=== PATIENT | male | born 1955 | race Caucasian/White ===

== ENCOUNTER 2019-05-23 08:43 | Emergency (ER) | payer MEDICARE, MEDICAID ==
[~2019-05-23] VITALS: Ht 175.3 cm; Wt 90.9 kg
[2019-05-23 11:35] VITALS: BP 165/91
== END 2019-05-23 11:50 | disposition home or self-care (01) ==
LOC: EMS 08:47
DX: S70.01XA Contusion of right hip, initial encounter (principal); G89.29 Other chronic pain; I10 Essential (primary) hypertension; Z96.641 Presence of right artificial hip joint; W06.XXXA Fall from bed, initial encounter; Y93.89 Activity, other specified; Y92.89 Other specified places as the place of occurrence of the external cause; Y99.8 Other external cause status
CPT/HCPCS: 73502